=== PATIENT | female | born 1945 ===

== ENCOUNTER 2017-09-27 15:26 | Inpatient (IN) | payer OTHER ==
[~2017-09-27] VITALS: Ht 152.4 cm; Wt 60.8 kg
[2017-09-28] MEDS ORDERED: NORVASC10 MG PO (11:47)
[2017-09-28] MEDS ORDERED: LOPRESSOR25 MG PO (11:47)
[2017-09-28] MEDS ORDERED: ZOCOR20 MG PO (11:47)
[2017-09-28] MEDS ORDERED: METFORMIN HCL500 MG PO (11:47)
== END 2017-10-06 11:14 | disposition home or self-care (01) | DRG 735 ==
LOC: EDSTATUS 15:30 → ADM 15:30 → O/R 10-04 06:24 → OB/GYN 10-04 06:24 → SURG 10-04 15:00 → OB/GYN 10-04 15:30 → SURG 10-04 15:30 → OB/GYN 10-06 11:14
PROVIDERS: Obstetrics & Gynecology Gynecologic Oncology
PROC: 07TC4ZZ Resection of Pelvis Lymphatic, Percutaneous Endoscopic Approach (ICD-10-PCS; 2017-10-04)
PROC: 0UT74ZZ Resection of Bilateral Fallopian Tubes, Percutaneous Endoscopic Approach (ICD-10-PCS; 2017-10-04)
PROC: 0UT24ZZ Resection of Bilateral Ovaries, Percutaneous Endoscopic Approach (ICD-10-PCS; 2017-10-04)
PROC: 0UT94ZZ Resection of Uterus, Percutaneous Endoscopic Approach (ICD-10-PCS; principal; 2017-10-04 15:00)
DX: C54.1 Malignant neoplasm of endometrium (principal)